=== PATIENT | male | born 1935 | race Caucasian/White ===

== ENCOUNTER 2018-10-30 19:47 | Emergency (ER) | payer MEDICARE, OTHER ==
[2018-10-30 20:30] LABS: APPEARANCE,URINE Cloudy; BILIRUBIN,URINE NEGATIVE (NEGATIVE); COLOR,URINE Yellow; GLUCOSE, URINE (UA) NEGATIVE (NEGATIVE); KETONES,URINE NEGATIVE (NEGATIVE); LEUKOCYTE ESTERASE ,URINE 3+ (NEGATIVE); NITRATE,URINE NEGATIVE (NEGATIVE); OCCULT BLOOD,URINE 1+ (NEG-TRACE); PH,URINE 5.5; UROBILINOGEN,URINE 0.2 (0.2-1.0 EU)
[2018-10-30 20:47] LABS: CRYSTALS UNALBE (0-3 AVE/HPF); EPITHELIAL CELLS UNABLE (SQUAMOUS); RBC,URINE UNABLE (0-3AV/HPF); WBC,URINE TNTC (0-5AV/HPF)
[2018-10-30 20:48] LABS: BACTERIA UNABLE (< 1+)
[2018-10-30 21:00] VITALS: RESP 18; TEMP 97
[2018-10-30] MEDS ORDERED: SULFAMETHOXAZOLE/TRIMETHOPRI 800/160 MG PO ONE (21:00)
[2018-10-30 21:01] VITALS: O2SAT 96
[2018-10-30] MEDS ORDERED: SULFAMETHOXAZOLE/TRIMETHOPRI 800/160 MG ONE (21:05)
[2018-10-30 21:13] VITALS: BP 136/72; PULSE 68
== END 2018-10-30 21:27 | disposition home or self-care (01) | DRG 690 ==
LOC: ED 19:47
DX: N39.0 Urinary tract infection, site not specified (principal)
CPT/HCPCS: 51798; 81001; 87088; 99283; A9270-GY